=== PATIENT | female | born 1945 | race Caucasian/White ===

== ENCOUNTER → 2017-01-07 | Outpatient (CLI) | payer OTHER ==
[2013-09-14 12:03] VITALS: BP 129/58
--- NOTE | 2017-01-07 10:54 | MG ---
HISTORY: SCREENING Comparison: 12/12/2015 FINDINGS: Bilateral CC and MLO projections of the right and left breast were obtained. Scattered fibroglandul ar tissue is seen to be present. No significant architectural distortion, mass or clustered microca lcifications can be observed to suggest malignancy. No skin thickening or nipple retraction is appr eciated. No pathological lymphadenopathy can be identified. IMPRESSION: NO RADIOGRAPHIC EVIDENCE OF MALIGNANCY. ACR CATEGORY I - NEGATIVE EXAM. FOLLOW-UP EXAM 1 YEAR. Diagnostic CAD was utilized and reviewed. * 0 (ZERO) - ASSESSMENT INCOMPLETE; ADDITIONAL IMAGING IS NEEDED. * 1/1 (ONE) - NEGATIVE. * 2/II (TWO) - BENIGN FINDINGS. * 3/III (THREE) - PROBABLY BENIGN FINDING; SHORT INTERVAL FOLLOW-UP SUGGESTED. * 4/IV (FOUR) - SUSPICIOUS ABNORMALITY; BIOPSY SHOULD BE CONSIDERED. * 5/V - HIGHLY SUSPICIOUS OF MALIGNANCY; BIOPSY SHOULD BE PERFORMED. A NEGATIVE X-RAY REPORT SHOULD NOT DELAY BIOPSY IF A DOMINANT OR CLINICALLY SUSPICIOUS MASS IS PRESENT; 4 TO 8 PERCENT OF CANCERS ARE NOT IDENTIFIED BY X-RAY. A NEG ATIVE REPORT MAY REINFORCE THE CLINICAL IMPRESSION. ADENOSIS AND DENSE BREASTS MAY OBSCURE AN UNDER LYING NEOPLASM. Reported By:
== END ==
LOC: RAD 09:34
PROVIDERS: ATTEND Internal Medicine
DX: Z12.31 Encounter for screening mammogram for malignant neoplasm of breast (principal)
CPT/HCPCS: 77067

== ENCOUNTER → 2017-01-27 | Outpatient (CLI) | payer OTHER ==
[2013-09-14 12:03] VITALS: BP 129/58
[~2017-01-27] MED LIST: NS 100 ML IV 100 ML IV ONE
[2017-01-27 10:52] LABS: CREATININE 0.64 mg/dL (0.55-1.02)
--- NOTE | 2017-01-27 12:22 | CT ---
HISTORY: Chronic cough Study: CT chest with contrast Comparison: None Technique: Axial post-contrast images with coronal and sagittal reformats. Dose reduction procedures were used with MA/kv adjusted for body size. Findings: Examination of the mediastinum demonstrated no evidence for mediastinal masses, enlarged lymphadenop athy, or enlarged hilar adenopathy. No pleural effusions are identified. No chest wall or axillary a bnormality is identified. Those portions of the upper abdominal organs visualized were within normal limits. Examination of the lung parrish demonstrated hyperinflation to be present. Best visualized o n series 5, image 41 is a 3.8 millimeter subpleural right middle lobe pulmonary nodule which will re quire CT follow up in 6 to 12 months. No other nodules, alveolar infiltrates, areas of consolidation , masses, peribronchial thickening or bronchiectasis is identified. IMPRESSION: Hyperinflation 3.8 millimeters subpleural right middle lobe pulmonary nodule which will require CT follow up in 6 t o 12 months No other significant findings Reported By:
== END ==
LOC: RAD 10:25
PROVIDERS: ATTEND Internal Medicine
DX: R05 Cough (principal)
CPT/HCPCS: 36415; 71260; 82565; 84520; A4222

== ENCOUNTER → 2017-02-18 | Outpatient (CLI) | payer OTHER ==
[2013-09-14 12:03] VITALS: BP 129/58
--- NOTE | 2017-02-18 10:44 | MRI ---
HISTORY: Low back pain, left radiculopathy Study: MRI lumbar spine without contrast Comparison: None Technique: Multiplanar multi-sequence MRI of the lumbar spine was obtained. Sagittal T1, sagittal T2 , and stir weighted images, axial T1, and axial T2 images were obtained. Findings: The patient is status post L5-S1 posterior fusion with hardware and a disc spacer present . Fusion ap pears complete. There is a compression fracture of T12 with signal characteristics suggesting a likel y recent extension of an older fracture. The lumbar spine demonstrates normal alignment with the othe rwise expected signal characteristics of the bone marrow. The conus of the cord terminates normally. T12 -- L1: No evidence for compressive disc disease. The neural foramina are patent. The joints are n ormal. L1 -- L2: No evidence for compressive disc disease. The neural foramina are patent. The joints are no rmal L2 -- L3: No evidence for compressive disc disease. The neural foramina are patent. The joints are no rmal. L3 -- L4: No evidence for compressive disc disease. The neural foramina are patent. Mild bilateral fa cet arthropathy is present. L4 -- L5: No evidence for compressive disc disease. The neural foramina are patent. Bilateral facet a rthropathy is present. L5 -- S1: Status post fusion. The neural foramina are patent. Hardware is present. IMPRESSION: Compression fracture of T12 signal characteristics suggest a likely recent extension of an older frac ture Disc level findings detailed for each level above Reported By:
--- NOTE | 2017-02-18 11:01 | MRI ---
HISTORY: Left hip pain and low back pain Study: MRI left hip without contrast Comparison: None Technique: Multiplanar multisequence MRI of the left hip was obtained utilizing standard departmenta l protocol without IV contrast. Findings: Coronal T1 and STIR weighted sequences demonstrate previous fusion and laminectomy at the lumbosacral spine. There are osteoarthritic changes of both hips present with associated joint space narrowing a nd subchondral cystic changes in the femoral heads. There is no marrow edema to suggest an acute frac ture. No soft tissue injury is identified. The visualized intrapelvic structures are within normal li mits. Axial T2, and coronal and sagittal proton density sequences of the left hip were reviewed showi ng degenerative changes of the acetabular labrum without a displaced tear. IMPRESSION: Degenerative changes of the left hip joint as described without acute osseous abnormality. Reported By:
== END | disposition home or self-care (01) | DRG 552 ==
LOC: RAD 08:33
PROVIDERS: ATTEND Internal Medicine
DX: M51.16 Intervertebral disc disorders with radiculopathy, lumbar region (principal); M25.552 Pain in left hip; M16.12 Unilateral primary osteoarthritis, left hip
CPT/HCPCS: 72148; 73721

== ENCOUNTER 2017-03-12 18:34 | Emergency (ER) | payer OTHER ==
[2017-03-12 18:44] VITALS: BP 149/58; BMI 24.0
[2017-03-12] MEDS ORDERED: TORADOL 60 MG VIAL IM ONE (20:40)
--- NOTE | 2017-03-12 20:41 | DR.GENAD ---
HPI - PCP Primary Care Physician: Carlos - Complaint/Symptoms Chief Complaint Doctors Comments: Fell twisted her right ankle and injured left knee Chief Complaint:: "Today I was at my sons house and I fell onto the floor. I felt something pop on my ankle and I also felt pain in my left knee and back. My ankle is swollen up really bad and I really can't walk on it. I have been diagnosed with a L12 fracture a while back and I'm thinking that it may have aggrevated that." - Source History Provided: Patient - Mode of Arrival Mode of Arrival: Wheelchair - Timing Onset of Chief Complaint: 03/12/17 PMH - PMH Past Medical History: Yes Past Medical History: Anxiety, Arthritis, Diabetes, Dyslipidemia, Hypertension, Hypothyroidism Past Surgical History: Yes Surgical History: Cholecystectomy, AIRCRAFT INSTRUMENT TESTER Surgery - Family History History of Family Medical Conditions: Yes Family Medical History: Diabetes Mellitus, Coronary Artery Disease, Hypertension - Social History Does patient currently use any type of tobacco product: No Have you used tobacco products in the last 12 months: No Type of Tobacco Use: None Does any household member use tobacco: No Alcohol Use: None Do you use any recreational Drugs:: No Lives With: Family Lives Where: Home - infectious screening In the last 2 months have you had wt loss of >10#?: NO Have you had fever, night sweats or hemotysis?: No Have you traveled outside the country in the last 6 months?: No Isolation: Standard ROS - Review of Systems Constitutional: negative: Chills, Diaphoresis Eyes: No Symptoms Reported ENTM: No Symptoms Reported Respiratoy: No Symptoms Reported Cardiovascular: No Symptoms Reported Gastrointestinal/Abdominal: No Symptoms Reported Genitourinary: No Symptoms Reported Neurological: No Symptoms Reported Musculoskeletal: Knee (left knee pain, ), Ankle (right ankle swollen) Integumentary: No Symptoms Reported. negative: Change in Color Hematologic/Lymphatic: No Symptoms Reported Endocrine: No Symptoms Reported Psychiatric: No Symptoms Reported All Other Systems: Reviewed and Negative PE - Vital Signs Vitals: Temperature 98.3 F Pulse Rate 73 Respiratory Rate 18 Blood Pressure [Right Arm] 129/58 Blood Pressure 149/58 O2 Sat by Pulse Oximetry 99 - General Limitations: No Limitations General Appearance: Alert, In No Apparent Distress - Head Head Exam: Normal Inspection, Atraumatic - Eyes Eye exam: Normal Appearance, PERRL, EOMI - ENT ENT Exam: Normal Exam External Ear Exam: Normal External Inspection TM/Canal Exam: Bilateral Normal Nose Exam: Normal Nose Exam Mouth Exam: Normal Inspection Throat Exam: Normal Inspection - Neck Neck Exam: Normal Inspection - Chest Chest Inspection: Normal Inspection - Respiratory Respiratory Exam: Normal Lung Sounds Bilat Respiratory Exam: Bilateral Clear to Auscultation - Cardiovascular Cardiovascular Exam: Regular Rate, Normal Rhythm - Abdominal Exam Abdominal Exam: Normal Inspection, Normal Bowel Sounds Abdominal Tenderness: negative: RUQ, RLQ, LUQ, LLQ, Epigastrium, Suprapubic, Diffuse, Mild, Moderate, Severe, Other - Extremities Extremities Exam: Joint Swelling (right lateral malleolus tender) - Back Back Exam: Normal Inspection - Neurologic Neurological Exam: Alert, Oriented X3, CN II-XII Intact - Psychiatric Psychiatric Exam: Normal Affect, Normal Mood - Skin Skin Exam: Warm, Dry, Intact Course - Reevaluation 1st: Improved ROR - XRAY XRAY Interpreted by: Radiologist (Left Knee: The medial unicondylar arthroplasty projects in expected radiographic position without evidence of loosening. Mild lateral femorotibial and patellofemoral compartment degenerative changes are present. No fracture of malalignment seen. Right ankle : There is no fracture or malalignment of the right ankle. There is circumferential soft tissue swelling greatest over the lateral malleolus. No degenerative changes are seen.) - Diagnosis Discharge Problem: Osteoarthritis of left knee Qualifiers: Osteoarthritis type: primary Qualified Code(s): M17.12 - Unilateral primary osteoarthritis, left knee Right ankle sprain Qualifiers: Encounter type: initial encounter Involved ligament of ankle: calcaneofibular ligament Qualified Code(s): S93.411A - Sprain of calcaneofibular ligament of right ankle, initial encounter - Discharge Plan Condition: Stable - Follow ups/Referrals Follow ups/Referrals: Orlin Gonzalez [Primary Care Provider] - 3 days - Instructions
[2017-03-12] MEDS ORDERED: TORADOL 60 MG VIAL ONE (20:42)
--- NOTE | 2017-03-12 21:20 | RAD ---
Three views of the right ankle Indication: Injury with ankle pain. Conclusion: There is no fracture or malalignment of the right ankle. There is circumferential soft ti ssue swelling greatest over the lateral malleolus. No degenerative changes are seen. Reported By:
--- NOTE | 2017-03-12 21:21 | RAD ---
Two views of the left knee Indication: Left knee pain. Conclusion: The medial unicondylar arthroplasty projects in expected radiographic position without ev idence of loosening. Mild lateral femorotibial and patellofemoral compartment degenerative changes ar e present. No fracture or malalignment seen. Reported By:
== END 2017-03-12 21:46 | disposition home or self-care (01) ==
LOC: ER 18:50
PROC: 2W3LX1Z Immobilization of Right Lower Extremity using Splint (ICD-10-PCS; principal; 2017-03-12)
DX: S93.411A Sprain of calcaneofibular ligament of right ankle, initial encounter (principal); W19.XXXA Unspecified fall, initial encounter; Y92.89 Other specified places as the place of occurrence of the external cause
CPT/HCPCS: 29540; 73560; 73610; 96372; 99282; 99283; J1885

== ENCOUNTER → 2017-04-27 | Outpatient (CLI) | payer OTHER ==
--- NOTE | 2017-04-27 13:06 | MRI ---
MRI OF THE CERVICAL SPINE WITHOUT IV CONTRAST MRI OF THE THORACIC SPINE WITHOUT IV CONTRAST MRI OF THE PELVIS WITHOUT IV CONTRAST CLINICAL INDICATION: Spondylosis with myelopathy. Chronic mid back pain. Pelvic and perineal pain. TECHNIQUE: Pre-contrast sagittal T1-, T2-, and T2-w fat-saturated images, and axial T1- and T2-w imag es of the cervical and thoracic spine. Multiplanar multi sequence MRI of the pelvis was obtained with out the administration of intravenous contrast according to standard departmental protocol. COMPARISON: Lumbar spine MRI 02/18/2017. CT abdomen pelvis 05/06/2016 FINDINGS: Cervical spine: The cervical spine demonstrates normal alignment. Vertebral bodies are normal in heig ht. There is a normal marrow signal pattern. Multilevel degenerative disc disease and desiccated disc signal. There is no abnormality of the cranio-cervical junction. The included paraspinal soft tissue s are grossly normal. Evaluation of the individual levels demonstrates: C1-2: Normal C2-3: Normal C3-4: Normal C4-5: Disc osteophyte complex with mild eccentric left central stenosis and moderate left-sided neura l foraminal stenosis. C5-6: Mild disc osteophyte complex with mild left-sided neural foraminal stenosis. C6-7: Disc osteophyte complex with mild central stenosis and mild left neural foraminal stenosis. C7-T1: Normal Thoracic spine: The thoracic spine demonstrates normal alignment. Compression deformity of T11 which is unchanged from 02/18/2017. There is a normal marrow signal pattern. Mild multilevel degenerative disc disease. Small posterior disc bulge at T1-T2 without significant central stenosis. The included paraspinal soft tissues and retroperitoneal structures are grossly normal. Pelvis: The uterus and ovaries are normal in appearance. No free fluid in the pelvis. Distal ureters are normal. Visualized bowel is without inflammation or obstruction. No aggressive osseous lesions. S I joints and hip joints appear grossly normal. IMPRESSION: 1. Multilevel degenerative disc disease of the cervical and thoracic spine. Findings are worst at C4- C5. 2. Chronic T11 compression deformity. Reported By:
== END | disposition home or self-care (01) | DRG 552 ==
LOC: RAD 08:22
PROVIDERS: ATTEND Neurological Surgery
DX: M47.12 Other spondylosis with myelopathy, cervical region (principal); M54.6 Pain in thoracic spine; R10.2 Pelvic and perineal pain; M50.321 Other cervical disc degeneration at C4-C5 level
CPT/HCPCS: 72141; 72146; 72195